=== PATIENT | male | born 1985 | race Caucasian/White ===

== ENCOUNTER 2018-04-03 16:50 | Emergency (ER) | payer BC ==
[~2018-04-03] VITALS: Wt 77.1 kg
[2018-04-03] MEDS ORDERED: ANTIBIOTIC28.4 GM T (17:35)
[2018-04-03] MEDS ORDERED: SEPTDS PO (17:35)
[2018-04-03] MEDS ORDERED: CEPHALEXIN500 M1 PO (17:35)
== END 2018-04-03 17:51 | disposition home or self-care (01) ==
LOC: ED 16:50
DX: L02.412 Cutaneous abscess of left axilla (principal); F17.200 Nicotine dependence, unspecified, uncomplicated

== ENCOUNTER 2021-01-31 13:02 | Emergency (ER) | payer BC ==
[~2021-01-31] VITALS: Ht 185.4 cm; Wt 83.9 kg
[~2021-01-31 13:02] MED LIST: ANTIBIOTIC28.4 GM T; CEPHALEXIN500 M1 PO; SEPTDS PO
[2021-01-31 15:55] LABS: BASO # 0.1 10*3/uL (0.0-0.1); BASO % 0.6 % (0.0-1.0); HEMATOCRIT 44.5 % (42.0-52.0); LYMPH # 1.1 10*3/uL (1.3-4.4); LYMPH % 11.1 % (27.0-41.0); MEAN CELL VOLUME 92.7 fl (80.0-94.0); MEAN CORPUSCULAR HGB 30.8 pg (27.0-31.0); MEAN CORPUSCULAR HGB CONC 33.3 g/dl (33.0-37.0); MEAN PLATELET VOLUME 9.6 fl (9.6-12.3); MONO # 0.7 10*3/uL (0.1-1.0); MONO % 7.1 % (3.0-9.0); NEUT # 8.1 10*3/uL (2.3-7.9); NEUT % 80.8 % (47.0-73.0); PLATELET COUNT AUTOMATED 279 10*3/uL (130-400); RED CELL DISTRI WIDTH 12.6 % (0-14.5)
[2021-01-31 16:18] LABS: ALBUMIN 4.4 gm/dl (3.1-4.5); ALKALINE PHOSPHATASE 61 U/L (45-117); BUN 9 mg/dl (7-24); CHLORIDE 101 mmol/L (98-107); CREATININE 0.67 mg/dL (0.70-1.30); LIPASE 56 U/L (73-393); POTASSIUM 3.9 mmol/L (3.5-5.1); SGOT/AST 10 IU/L (3-35); SGPT/ALT 29 U/L (12-78); SODIUM 134 mmol/L (136-145)
[2021-01-31 18:04] LABS: BILIRUBIN Negative (Negative); BLOOD Trace-Intact (Negative); CLARITY Clear (Clear); COLOR Yellow (Yellow); GLUCOSE Negative (Negative); KETONE 3+ (Negative); LEUKO ESTERASE Negative (Negative); NITRITE Negative (Negative); PH 7.5 (4.5-8.0)
[2021-01-31 18:26] LABS: EPITHELIAL CELLS 0-2; WBC 0-2 wbc/hpf (0-5)
== END 2021-01-31 20:25 | disposition home or self-care (01) ==
LOC: ED 13:02
PROVIDERS: Emergency Medicine
DX: B34.9 Viral infection, unspecified (principal); Z20.822 Contact with and (suspected) exposure to COVID-19; R82.998 Other abnormal findings in urine; Z79.2 Long term (current) use of antibiotics

== ENCOUNTER 2021-05-06 10:36 | Inpatient (IN) | payer BC ==
[~2021-05-06] VITALS: Ht 182.9 cm; Wt 86.4 kg
[2021-05-06 10:53] VITALS: BP 146/100
[2021-05-06 11:23] LABS: BASO # 0.1 10*3/uL (0.0-0.1); BASO % 0.6 % (0.0-1.0); EOS % 0.1 % (1.0-4.0); HEMATOCRIT 47.2 % (42.0-52.0); LYMPH # 1.1 10*3/uL (1.3-4.4); LYMPH % 10.7 % (27.0-41.0); MEAN CELL VOLUME 92.5 fl (80.0-94.0); MEAN CORPUSCULAR HGB 31.4 pg (27.0-31.0); MEAN CORPUSCULAR HGB CONC 33.9 g/dl (33.0-37.0); MEAN PLATELET VOLUME 9.6 fl (9.6-12.3); MONO # 1.1 10*3/uL (0.1-1.0); MONO % 10.2 % (3.0-9.0); NEUT # 8.1 10*3/uL (2.3-7.9); NEUT % 78.1 % (47.0-73.0); PLATELET COUNT AUTOMATED 281 10*3/uL (130-400); RED CELL DISTRI WIDTH 12.7 % (0-14.5); WHITE BLOOD COUNT 10.4 10*3/uL (4.8-10.8)
[2021-05-06 11:37] LABS: ALBUMIN 4.2 gm/dl (3.1-4.5); ALKALINE PHOSPHATASE 76 U/L (45-117); BUN 8 mg/dl (7-24); CHLORIDE 97 mmol/L (98-107); CREATININE 0.84 mg/dL (0.70-1.30); SGOT/AST 44 IU/L (3-35); SGPT/ALT 53 U/L (12-78); SODIUM 134 mmol/L (136-145); TOTAL PROTEIN 8.4 gm/dL (6.4-8.2)
[2021-05-06 11:44] LABS: ETHYL ALCOHOL < 3.0 mg/dl (<3)
[2021-05-06 12:00] VITALS: BP 131/86
[2021-05-06 13:35] LABS: BILIRUBIN 1+ (Negative); BLOOD Trace-Lysed (Negative); CLARITY Cloudy (Clear); COLOR Dark Yellow (Yellow); GLUCOSE Negative (Negative); KETONE 2+ (Negative); LEUKO ESTERASE Trace (Negative); NITRITE Negative (Negative); SPECIFIC GRAVITY >= 1.030 (1.001-1.030)
[2021-05-06 13:43] LABS: URINE AMPHETAMINES < 1000 (1000ng/ml); URINE BARBITURATES < 200 (200ng/ml); URINE BENZODIAZEPINES < 200 (200ng/ml); URINE CANNABINOIDS (THC) > 50 (50ng/ml); URINE COCAINE < 300 (300ng/ml); URINE METHADONE < 300 (300ng/ml); URINE OPIATES < 300 (300ng/ml)
[2021-05-06 13:48] LABS: BACTERIA 1+; MUCOUS 3+
[2021-05-06 13:51] LABS: URINE PHENCYCLIDINE < 25 (25ng/ml)
[2021-05-06 16:00] VITALS: BP 131/86
[2021-05-06 18:21] VITALS: BP 138/88
[2021-05-06 19:35] VITALS: BP 131/80
[2021-05-07 16:00] VITALS: BP 131/86
[2021-05-07 20:00] VITALS: BP 133/90
[2021-05-08] VITALS: BP 119/79
[2021-05-08 02:21] LABS: ALBUMIN 3.3 gm/dl (3.1-4.5); ALKALINE PHOSPHATASE 62 U/L (45-117); BUN 10 mg/dl (7-24); CHLORIDE 105 mmol/L (98-107); POTASSIUM 3.5 mmol/L (3.5-5.1); SGOT/AST 31 IU/L (3-35); SGPT/ALT 38 U/L (12-78); SODIUM 138 mmol/L (136-145); TOTAL PROTEIN 6.7 gm/dL (6.4-8.2)
[2021-05-08 08:00] VITALS: BP 120/90
[2021-05-08 12:00] VITALS: BP 143/85
[2021-05-08 16:00] VITALS: BP 137/96
[2021-05-08 20:00] VITALS: BP 135/85
[2021-05-09 00:17] VITALS: BP 132/90
[2021-05-09 08:00] VITALS: BP 104/67
[2021-05-09] MEDS ORDERED: ONDANSETRON HYDR4 M1 PO (09:23)
[2021-05-09] MEDS ORDERED: VISTARIL50 MG PO (09:23)
== END 2021-05-09 10:25 | disposition home or self-care (01) | DRG 897 ==
LOC: ED 10:36 → 5E 12:07 → EDHOLD 12:07 → 5E 05-07 15:06
PROVIDERS: Internal Medicine; Student in an Organized Health Care Education/Training Program; ADMIT Family Medicine; ATTEND Family Medicine
DX: F10.230 Alcohol dependence with withdrawal, uncomplicated (principal); E87.1 Hypo-osmolality and hyponatremia; F41.9 Anxiety disorder, unspecified; F32.A Depression, unspecified; R00.0 Tachycardia, unspecified; E87.8 Other disorders of electrolyte and fluid balance, not elsewhere classified; R73.9 Hyperglycemia, unspecified; E80.6 Other disorders of bilirubin metabolism; R74.01 Elevation of levels of liver transaminase levels; F17.290 Nicotine dependence, other tobacco product, uncomplicated; Z71.6 Tobacco abuse counseling; Z81.8 Family history of other mental and behavioral disorders; Z79.899 Other long term (current) drug therapy

== ENCOUNTER 2021-09-21 16:18 | Inpatient (IN) | payer BC ==
[~2021-09-21] VITALS: Ht 185.4 cm; Wt 83.9 kg
[~2021-09-21 16:18] MED LIST changes: +ONDANSETRON HYDR4 M1 PO; +VISTARIL50 MG PO
[2021-09-21 16:54] VITALS: BP 130/86
[2021-09-21] MEDS ORDERED: Mysoline50 MG PO (20:26)
[2021-09-21 20:44] LABS: BASO # 0.1 10*3/uL (0.0-0.1); BASO % 0.8 % (0.0-1.0); EOS % 0.5 % (1.0-4.0); HEMATOCRIT 48.9 % (42.0-52.0); LYMPH % 27.1 % (27.0-41.0); MEAN CELL VOLUME 89.9 fl (80.0-94.0); MEAN CORPUSCULAR HGB 30.7 pg (27.0-31.0); MEAN CORPUSCULAR HGB CONC 34.2 g/dl (33.0-37.0); MEAN PLATELET VOLUME 9.2 fl (9.6-12.3); MONO # 0.9 10*3/uL (0.1-1.0); MONO % 11.7 % (3.0-9.0); NEUT # 4.5 10*3/uL (2.3-7.9); NEUT % 59.5 % (47.0-73.0); PLATELET COUNT AUTOMATED 268 10*3/uL (130-400); RED BLOOD COUNT 5.44 10*6/uL (4.50-5.90); RED CELL DISTRI WIDTH 12.5 % (0-14.5); WHITE BLOOD COUNT 7.5 10*3/uL (4.8-10.8)
[2021-09-21 20:59] LABS: BILIRUBIN Negative (Negative); BLOOD 1+ (Negative); CLARITY Clear (Clear); COLOR Yellow (Yellow); GLUCOSE Negative (Negative); KETONE 1+ (Negative); LEUKO ESTERASE Negative (Negative); NITRITE Negative (Negative); SPECIFIC GRAVITY >= 1.030 (1.001-1.030)
[2021-09-21 21:02] LABS: ALKALINE PHOSPHATASE 72 U/L (45-117); BUN 8 mg/dl (7-24); CHLORIDE 100 mmol/L (98-107); CREATININE 0.68 mg/dL (0.70-1.30); POTASSIUM 4.2 mmol/L (3.5-5.1); SGOT/AST 23 IU/L (3-35); SGPT/ALT 27 U/L (12-78); SODIUM 134 mmol/L (136-145); TOTAL PROTEIN 8.1 gm/dL (6.4-8.2)
[2021-09-21 21:07] LABS: URINE AMPHETAMINES < 1000 (1000ng/ml); URINE BARBITURATES < 200 (200ng/ml); URINE BENZODIAZEPINES < 200 (200ng/ml); URINE CANNABINOIDS (THC) < 50 (50ng/ml); URINE COCAINE < 300 (300ng/ml); URINE METHADONE < 300 (300ng/ml); URINE OPIATES < 300 (300ng/ml)
[2021-09-21 21:08] LABS: URINE PHENCYCLIDINE < 25 (25ng/ml)
[2021-09-21 21:33] LABS: BACTERIA TRACE; MUCOUS 1+; RBC 16-20 rbc/hpf (0-2)
[2021-09-21 21:55] VITALS: BP 104/51
[2021-09-22] VITALS (13 sets, daily range): BP systolic 96–123; BP diastolic 55–92
[2021-09-22 06:32] LABS: BASO % 0.5 % (0.0-1.0); EOS # 0.1 10*3/uL (0.0-0.4); EOS % 1.1 % (1.0-4.0); HEMATOCRIT 43.1 % (42.0-52.0); LYMPH # 1.9 10*3/uL (1.3-4.4); LYMPH % 29.4 % (27.0-41.0); MEAN CELL VOLUME 92.3 fl (80.0-94.0); MEAN CORPUSCULAR HGB CONC 33.6 g/dl (33.0-37.0); MEAN PLATELET VOLUME 9.6 fl (9.6-12.3); MONO # 0.8 10*3/uL (0.1-1.0); MONO % 11.8 % (3.0-9.0); NEUT # 3.6 10*3/uL (2.3-7.9); NEUT % 56.6 % (47.0-73.0); PLATELET COUNT AUTOMATED 214 10*3/uL (130-400); RED BLOOD COUNT 4.67 10*6/uL (4.50-5.90); RED CELL DISTRI WIDTH 12.5 % (0-14.5); WHITE BLOOD COUNT 6.4 10*3/uL (4.8-10.8)
[2021-09-22 06:53] LABS: BUN 10 mg/dl (7-24); CHLORIDE 104 mmol/L (98-107); POTASSIUM 4.1 mmol/L (3.5-5.1); SODIUM 138 mmol/L (136-145); TRIGLYCERIDES 55 mg/dl (<150)
[2021-09-22 06:59] LABS: ALKALINE PHOSPHATASE 60 U/L (45-117); CHOLESTEROL 189 mg/dL (<200); CREATININE 0.64 mg/dL (0.70-1.30); LDL CHOLESTEROL 56 mg/dL (9-159); SGOT/AST 19 IU/L (3-35); SGPT/ALT 27 U/L (12-78); TOTAL PROTEIN 6.6 gm/dL (6.4-8.2)
[2021-09-22 09:33] LABS: VITAMIN D, 25-HYDROXY 11.2 ng/mL (30-100)
[2021-09-23] VITALS: BP 99/66
[2021-09-23 08:00] VITALS: BP 110/73
[2021-09-23 12:00] VITALS: BP 119/76
[2021-09-23 16:00] VITALS: BP 117/71
[2021-09-23 20:00] VITALS: BP 122/70
[2021-09-24] VITALS: BP 124/76
[2021-09-24 08:00] VITALS: BP 124/69
[2021-09-24 12:00] VITALS: BP 106/72
[2021-09-24 16:00] VITALS: BP 108/60
[2021-09-24 20:00] VITALS: BP 115/74
[2021-09-25] VITALS: BP 110/74
[2021-09-25 08:00] VITALS: BP 98/59
[2021-09-25] MEDS ORDERED: ATARAX,VISTARIL50 MG PO (12:19)
== END 2021-09-25 14:00 | disposition home or self-care (01) | DRG 897 ==
LOC: ED 16:18 → EDHOLD 22:18 → 5E 09-22 15:14
PROVIDERS: Emergency Medicine; Internal Medicine; ADMIT Student in an Organized Health Care Education/Training Program; ATTEND Student in an Organized Health Care Education/Training Program
DX: F10.239 Alcohol dependence with withdrawal, unspecified (principal); E87.1 Hypo-osmolality and hyponatremia; Z71.6 Tobacco abuse counseling; R73.9 Hyperglycemia, unspecified; F41.9 Anxiety disorder, unspecified; F32.A Depression, unspecified; G25.0 Essential tremor; K08.409 Partial loss of teeth, unspecified cause, unspecified class; F17.229 Nicotine dependence, chewing tobacco, with unspecified nicotine-induced disorders; Z82.0 Family history of epilepsy and other diseases of the nervous system